=== PATIENT | male | born 1980 | race Caucasian/White ===

== ENCOUNTER 2019-05-27 11:37 | Emergency (ER) | payer BC ==
[2019-05-27] MEDS ORDERED: NS 0.9% 1000 ML** 1,000 ML IV ONE (11:55)
[2019-05-27] MEDS ORDERED: Metoprolol Tartrate IV* 1 MG/ML 5 ML VIAL IV PRN (11:55)
--- NOTE | 2019-05-27 11:59 | ED ---
HPI Chest Pain - HPI Summary HPI Summary: This patient is a 38 year old M [place] [facility] [place] with a chief complaint of chest heaviness since yesterday. Pt states he was walking on a treadmill for one minute when the symptoms arose. He felt that his heart was racing without much physical exertion. Pt has hx of a-fib. The patient rates the pain 2/10 in severity. Patient also reports JUNG. Of note patient had similar symptoms 2 years ago, pulse. Patient was placed on a Holter monitor 3 days and did not have any arrhythmias at that time. He followed with Dr. Monreal of cardiology. Pt does not smoke and occasionally drinks alcohol. FHx of cardiac arrest in mother, DVT in father, afib in father. - History of Current Complaint Chief Complaint: EDDysrhythmPalp Time Seen by Provider: 05/27/19 11:47 Hx Obtained From: Patient Onset/Duration: Started Days Ago - yesterday, Still Present Timing: Constant, Lasting Days - 1 Initial Severity: Mild Current Severity: Mild Pain Intensity: 2 Pain Scale Used: 0-10 Numeric Character: Heaviness Aggravating Factor(s): Nothing Alleviating Factor(s): Nothing Associated Signs and Symptoms: Positive: Chest Pain - heaviness, Shortness of Breath, Other: - positive - increased heart rate - Allergy/Home Medications Allergies/Adverse Reactions: Allergies Allergy/AdvReac Type Severity Reaction Status Date / Time No Known Allergies Allergy Verified 05/27/19 11:47 Home Medications: Home Medications Cetirizine* [ZyrTEC 10 MG TAB*] 10 mg PO DAILY 05/27/19 [History Confirmed 05/27] Multivitamins/Minerals TAB* [Theragran/minerals TAB*] 1 tab PO DAILY 05/27/19 [ History Confirmed 05/27/19] PMH/Surg Hx/FS Hx/Imm Hx Previously Healthy: No Cardiovascular History: Reports: Hx Atrial Fibrillation Sensory History: Denies: Hx Legally Blind, Hx Deafness Opthamlomology History: Denies: Hx Legally Blind EENT History: Denies: Hx Deafness, Hx Auditory Problems - Surgical History Surgical History: Yes Infectious Disease History: No Infectious Disease History: Denies: Traveled Outside the [place] in Last 30 Days - Family History Known Family History: Positive: Cardiac Disease - A-Fib father, V-Fib mother - Social History Alcohol Use: Occasionally Hx Substance Use: No Substance Use Type: Reports: None Hx Tobacco Use: No Smoking Status (MU): Never Smoked Tobacco Review of Systems Cardiovascular: Other - positive - increased heart rate Positive: Chest Pain - heaviness Positive: Shortness Of Breath All Other Systems Reviewed And Are Negative: Yes Physical Exam - Summary Physical Exam Summary: Constitutional: Well-developed, Well-nourished, Alert. (-) Distressed Skin: Warm, Dry HENT: Normocephalic; Atraumatic Eyes: Conjunctiva normal Neck: Musculoskeletal ROM normal neck. (-) JVD, (-) Stridor, (-) Nuchal rigidity Cardio: Irregularly irregular rhythm, tachycardic, Heart sounds normal; Intact distal pulses; Radial pulses are 2+ and symmetric. (-) Murmur Pulmonary/Chest wall: Effort normal. (-) Respiratory distress, (-) Wheezes, (-) Rales Abd: Soft, (-) tenderness, (-) Distension, (-) Guarding, (-) Rebound Musculoskeletal: (-) Edema Lymph: (-) Cervical adenopathy Neuro: Alert, Oriented x3 Psych: Mood and affect Normal Triage Information Reviewed: Yes Vital Signs On Initial Exam: Initial Vitals Temp Pulse Resp BP Pulse Ox 97.5 F 150 20 155/110 100 05/27/19 11:45 05/27/19 11:45 05/27/19 11:45 05/27/19 11:45 05/27/19 11:45 Vital Signs Reviewed: Yes Diagnostics - Vital Signs Vital Signs Temp Pulse Resp BP Pulse Ox 05/27/19 11:45 97.5 F 150 20 155/110 100 - Laboratory Result Diagrams: 05/27/19 13:03 Lab Statement: Any lab studies that have been ordered have been reviewed, and results considered in the medical decision making process. - Radiology CXR Radiology Interpretation Completed By: Radiologist Summary of Radiographic Findings: IMPRESSION: NO ACTIVE CARDIOPULMONARY DISEASE. These findings were reviewed by Dr. Barnett. - EKG 1138 Cardiac Rate: Tachycardia - 119 BPM EKG Rhythm: Atrial Fibrillation Summary of EKG Findings: 119 BPM, a-fib, no STEMI 1348 Cardiac Rate: NL - 72 BPM EKG Rhythm: Atrial Fibrillation Summary of EKG Findings: a-fib, 72 BPM, no changes from prior, 1 mm of elevation in lead 2 Re-Evaluation - Re-Evaluation First Eval Re-Evaluation Time: 12:25 Comment: HR in the low 90s. Pt is still in a-fib. Pt will be given oral Metoprolol. Chest Pain Course/Dx - Course Course Of Treatment: 38-year-old male with a history of prior arrhythmia presents with palpitations, chest tightness and fatigue. - PE irregularly irregular heart rate, consistent with atrial fibrillation. Blood pressure stable. Chest Pain DDX: The patient is well appearing, with stable vitals. Given the patient's clinical presentation, highest on differential is discomfort secondary to arrhythmia. Although less likely, differential also includes the following: --Pneumothorax: Equal breath sounds, story inconsistent since gradual onset of symptoms. CXR shows no evidence of pneumothorax. Unlikely. --Cardiac tamponade: The history and physical are not concerning for tamponade. No Pulsus Paradoxus, no tachypnea. Unlikely. -- Mediastinitis or esophageal rupture: The history is not consistent, as the patient has had no recent history of significant wretching, instrumentation, or mediastinal surgeries. Unlikely. --Aortic dissection: The patient does not describe the classical tearing chest pain radiating into the back, and the CXR does not show mediastinal widening or other signs of aortic dissection. Unlikely. --PE: Vitals wnl (not hypoxic, tachycardic or tachypneic). PERC low risk. D dimer <200. --ACS: The initial EKG shows no ischemic changes. The initial troponin is not elevated. check electrolytes. will give metoprolol 5 mg IV - Diagnoses Provider Diagnoses: Atrial fibrillation - Provider Notifications Discussed Care Of Patient With: Froy Kamara Time Discussed With Above Provider: 13:46 Instructed by Provider To: Other - Dr. Kamara recommends giving the pt Metoprolol BID 25 mg and a repeat EKG if he is still in a-fib. Pt will be sent home with Eloquis. Discharge ED - Sign-Out/Discharge Documenting (check all that apply): Patient Departure - discharge Patient Received Moderate/Deep Sedation with Procedure: No - Discharge Plan Condition: Stable Disposition: HOME Prescriptions: Apixaban* [Eliquis*] 5 mg PO DAILY #30 tab Metoprolol Succinate [Kapspargo Sprinkle] 25 mg PO BID 30 Days #60 cap Patient Education Materials: A-fib (Atrial Fibrillation) (ED) Referrals: Lora Jolly MD [Primary Care Provider] - 2 Days Additional Instructions: You were seen in the emergency department for an abnormal heart rhythm. You have atrial fibrillation. Please take metoprolol 25 twice a day, and eliquis 5 once a day. Please follow up with cardiology. If any studies were not completed at the time of discharge you will be called with the relevant results. Please follow up with your primary care doctor in next 2-3 days and return to emergency department for worsening or concerning symptoms. It was a pleasure taking care of you today. - Billing Disposition and Condition Condition: STABLE Disposition: Home - Attestation Statements Document Initiated by Maris: Yes Documenting Scribe: Joseph Blanchard Provider For Whom Maris is Documenting (Include Credential): Dr. Nancy Barnett MD Scribe Attestation: Joseph Hugo, scribed for Dr. Nancy Barnett MD on 05/27/19 at 1409. Scribe Documentation Reviewed: Yes Provider Attestation: The documentation as recorded by the Joseph munguia accurately reflects the service I personally performed and the decisions made by me, Dr. Nancy Barnett MD Status of Scribe Document: Viewed
[2019-05-27] MEDS ORDERED: Metoprolol Tartrate IV* 1 MG/ML 5 ML VIAL ONE (12:01)
[2019-05-27] MEDS ORDERED: Metoprolol Tartrate TAB* 25 MG PO ONE (12:12)
[2019-05-27 12:45] LABS: Albumin 4.3 g/dL (3.2-5.2); CO2 Carbon Dioxide 26 mmol/L (22-32); Calcium 10.1 mg/dL (8.6-10.3); Chloride 108 mmol/L (101-111); Magnesium 2.4 mg/dL (1.9-2.7); Sodium 138 mmol/L (135-145)
[2019-05-27 12:51] LABS: ALT 14 U/L (7-52); Albumin/Globulin Ratio 1.9 (1-3); Alkaline Phosphatase 37 U/L (34-104); BUN/Creatinine Ratio 22.2 (8-20); Blood Urea Nitrogen 20 mg/dL (6-24); EGFR African American 113.1 (>60); EGFR Non-African American 93.5 (>60); Globulin 2.3 g/dL (2-4); Glucose 87 mg/dL (70-100); Total Protein 6.6 g/dL (6.4-8.9)
[2019-05-27 12:53] LABS: Anion Gap 4 mmol/L (2-11)
[2019-05-27 12:58] LABS: INR 1.08 (0.82-1.09)
[2019-05-27 13:32] LABS: AST Redraw 21 U/L (13-39); BUN/Creatinine Ratio 20.2 (8-20); Blood Urea Nitrogen 19 mg/dL (6-24); CO2 Carbon Dioxide 33 mmol/L (22-32); Calcium 10.1 mg/dL (8.6-10.3); Chloride 107 mmol/L (101-111); EGFR African American 107.6 (>60); EGFR Non-African American 88.9 (>60); Glucose 88 mg/dL (70-100); Potassium 4.8 mmol/L (3.5-5.0); Sodium 140 mmol/L (135-145)
[2019-05-27 14:16] LABS: ABS Eosinophils 0.1 10^3/ul (0-0.6); ABS Monocytes 0.4 10^3/ul (0-0.8); ABS Neutrophils 1.3 10^3/ul (1.5-7.7); Hematocrit 47 % (42-52); Lymphocyte % 35.9 %; Mean Corpuscular HGB Conc 32 g/dL (31-36); Mean Corpuscular Hemoglobin 31 pg (27-31); Mean Corpuscular Volume 97 fL (80-94); Mean Platelet Volume 9.2 fL (7.4-10.4); Nucleated Red Blood Cells % 0.1; Platelet Count 218 10^3/uL (150-450); Red Blood Count 4.87 10^6 /uL (4.18-5.48); Red Cell Distribution Width 14 % (10-15); White Blood Count 2.7 10^3/uL (3.5-10.8)
[2019-05-27 14:47] VITALS: BP 159/123
== END 2019-05-27 14:47 | disposition home or self-care (01) ==
LOC: ED 11:37
DX: I48.91 Unspecified atrial fibrillation (principal); R06.09 Other forms of dyspnea
CPT/HCPCS: 36415; 71045; 80048; 80053; 83735; 84484; 85025; 85379; 85610; 93005; 96361; 96374; 99284; J3490